=== PATIENT | female | born 1995 | race African-American/Black ===

== ENCOUNTER 2017-12-07 18:36 | Emergency (ER) | payer OTHER | END 2017-12-07 19:29 | disposition home or self-care (01) | LOC: M ED 18:36 | DX: S60.051A Contusion of right little finger without damage to nail, initial encounter (principal); X58.XXXA Exposure to other specified factors, initial encounter; Y93.83 Activity, rough housing and horseplay; Y92.009 Unspecified place in unspecified non-institutional (private) residence as the place of occurrence of the external cause; Z79.3 Long term (current) use of hormonal contraceptives | CPT/HCPCS: 73140 ==

== ENCOUNTER 2018-08-28 08:24 | Emergency (ER) | payer OTHER ==
[~2018-08-28] VITALS: Ht 157.5 cm; Wt 67.7 kg
[~2018-08-28 08:24] MED LIST: NEXP1IMP SC
[2018-08-28 09:16] LABS: HEMATOCRIT 34.7 % (36.0-47.0); HEMOGLOBIN 11.3 g/dl (12.0-15.5); MEAN CORPUSCULAR HEMOGLOBIN 26.8 pg (27.0-33.0); MEAN CORPUSCULAR HGB CONC 32.6 g/dl (32.0-36.5); MEAN CORPUSCULAR VOLUME 82.2 fl (80.0-96.0); PLATELET COUNT, AUTOMATED 252 10^3/uL (150-450); RED BLOOD COUNT 4.22 10^6/uL (4.00-5.40); WHITE BLOOD COUNT 8.2 10^3/uL (4.0-10.0)
--- NOTE | 2018-08-28 10:30 | REP ---
PELVIC ULTRASOUND: Real-time sonographic evaluation of the pelvis performed utilizing transabdominal and endovaginal technique. Uterus measures 10.9 x 5.4 x 7.8 cm. Within the endometrial canal there is an oval area of complex fluid measuring 2.7 x 1.1 x 2.1 cm. This may represent hemorrhage in a blighted ovum or it could simply represent an area of hemorrhage within the endometrial canal. No normal appearing gestational sac, yolk sac, or pole is seen. Ovaries appear normal in size and echotexture, right ovary measuring 2.7 x 1.5 x 2.2 cm and left ovary 3.5 x 1.5 x 2.7 cm. There is no evidence of ovarian torsion, RI right ovary 0.41 and left ovary 0.47. I see no adnexal mass or free fluid. Recommend correlation with serial quantitive beta hCG values to rule out the possibility of ectopic . Electronically Signed by Ahmet Hassan MD 08/31/2018 07:02 P
[2018-08-28 11:14] VITALS: BP 118/55
== END 2018-08-28 11:26 | disposition home or self-care (01) ==
LOC: M ED 08:24
DX: O03.4 Incomplete spontaneous abortion without complication (principal)

== ENCOUNTER 2018-10-14 11:43 | Emergency (ER) | payer OTHER ==
[~2018-10-14] VITALS: Ht 157.5 cm; Wt 67.7 kg
[2018-10-14 12:53] LABS: BASO % 0.7 % (0.0-1.0); EOS # 0.2 10^3/uL (0.0-0.5); EOS % 3.3 % (0.0-3.0); HEMATOCRIT 39.7 % (36.0-47.0); HEMOGLOBIN 12.7 g/dl (12.0-15.5); LYMPH # 2.3 10^3/uL (1.5-5.0); MEAN CORPUSCULAR HEMOGLOBIN 27.5 pg (27.0-33.0); MEAN CORPUSCULAR VOLUME 85.9 fl (80.0-96.0); MONO # 0.4 10^3/uL (0.0-0.8); NEUTROPHILS # 3.1 10^3/uL (1.5-8.5); NEUTROPHILS % 50.7 % (36.0-66.0); PLATELET COUNT, AUTOMATED 304 10^3/uL (150-450); RED BLOOD COUNT 4.62 10^6/uL (4.00-5.40); WHITE BLOOD COUNT 6.1 10^3/uL (4.0-10.0)
[2018-10-14 13:09] LABS: BLOOD UREA NITROGEN 15 MG/DL (7-18); CALCIUM LEVEL 9.3 MG/DL (8.5-10.1); CARBON DIOXIDE LEVEL 31 MEQ/L (21-32); CHLORIDE LEVEL 105 MEQ/L (98-107); CREATININE FOR GFR 0.81 MG/DL (0.55-1.30); GLOMERULAR FILTRATION RATE > 60.0 (>60); GLUCOSE, FASTING 94 MG/DL (70-100); POTASSIUM SERUM 4.2 MEQ/L (3.5-5.1); SODIUM LEVEL 139 MEQ/L (136-145)
[2018-10-14 13:50] LABS: HCG, SERUM QUANTITATIVE 2 MIU/ML
--- NOTE | 2018-10-14 16:17 | REP ---
Clinical: Vaginal bleeding. Technique: Transabdominal pelvic ultrasound followed by transvaginal examination for better evaluation of the endometrium and adnexa with color Doppler evaluation of the ovaries. Findings: Bladder is normal and measures approximately 8.1 x 5.5 x 5.8 cm. Normal anteverted uterus measures 7.6 x 3.4 x 4.2 cm. Endometrial complex measures 7.1 mm thickness. No obvious uterine or endometrial abnormalities appreciated. The bilateral ovaries are normal in appearance and vascularity. Right ovary measures 3.2 x 1.7 x 3.9 cm (RI 0.61) left ovary measures 3.5 x 1.6 x 1.8 cm (RI 0.54). Trace pelvic free fluid. No adnexal mass lesion. Impression: Normal pelvic ultrasound. Electronically Signed by Humble Lynch MD 10/14/2018 04:08 P
[2018-10-14 16:33] VITALS: BP 120/80
[2018-10-14 17:20] LABS: CHLAMYDIA DNA AMPLIFICATION NEGATIVE (NEGATIVE); GC DNA AMPLIFICATION NEGATIVE (NEGATIVE)
== END 2018-10-14 16:45 | disposition home or self-care (01) ==
LOC: M ED 11:43
DX: N93.9 Abnormal uterine and vaginal bleeding, unspecified (principal); Z87.59 Personal history of other complications of pregnancy, childbirth and the puerperium

== ENCOUNTER 2019-08-10 09:33 | Emergency (ER) | payer OTHER ==
[~2019-08-10] VITALS: Ht 157.5 cm; Wt 77.6 kg
[2019-08-10] MEDS ORDERED: NS 1,000 ML IV ONE (10:15)
[2019-08-10 10:32] LABS: BASO % 0.4 % (0.0-1.0); EOS # 0.1 10^3/uL (0.0-0.5); EOS % 1.2 % (0.0-3.0); HEMATOCRIT 39.2 % (36.0-47.0); HEMOGLOBIN 12.4 g/dl (12.0-15.5); LYMPH # 2.3 10^3/uL (1.5-5.0); MEAN CORPUSCULAR HEMOGLOBIN 26.2 pg (27.0-33.0); MEAN CORPUSCULAR HGB CONC 31.6 g/dl (32.0-36.5); MEAN CORPUSCULAR VOLUME 82.7 fl (80.0-96.0); MONO # 0.9 10^3/uL (0.0-0.8); MONO % 8.4 % (0.0-5.0); NEUTROPHILS # 6.7 10^3/uL (1.5-8.5); NEUTROPHILS % 66.2 % (36.0-66.0); PLATELET COUNT, AUTOMATED 326 10^3/uL (150-450); RED BLOOD COUNT 4.74 10^6/uL (4.00-5.40); WHITE BLOOD COUNT 10.2 10^3/uL (4.0-10.0)
[2019-08-10 11:37] LABS: ALBUMIN 3.6 GM/DL (3.2-5.2); ALT/SGPT 25 U/L (12-78); BILIRUBIN,DIRECT < 0.1 MG/DL (0.0-0.2); BILIRUBIN,TOTAL 0.2 MG/DL (0.2-1.0); BLOOD UREA NITROGEN 10 MG/DL (7-18); CALCIUM LEVEL 9.7 MG/DL (8.5-10.1); CARBON DIOXIDE LEVEL 28 MEQ/L (21-32); CHLORIDE LEVEL 103 MEQ/L (98-107); CREATININE FOR GFR 0.74 MG/DL (0.55-1.30); GLOMERULAR FILTRATION RATE > 60.0 (>60); GLUCOSE, FASTING 69 MG/DL (70-100); HCG, SERUM QUANTITATIVE 123431 MIU/ML; LIPASE 125 U/L (73-393); POTASSIUM SERUM 4.2 MEQ/L (3.5-5.1); SODIUM LEVEL 138 MEQ/L (136-145); TOTAL PROTEIN 7.8 GM/DL (6.4-8.2)
--- NOTE | 2019-08-10 12:52 | REP ---
Clinical: Nausea and cramping. Dating and viability. Technique: Transabdominal first trimester obstetrical ultrasound with color Doppler evaluation. Findings: Ultrasound examination demonstrates single live early intrauterine . Gestational sac with yolk sac and pole identified. CRL of 37 mm corresponds to 10 weeks 4 days gestational age with estimated date of delivery 03/03/2020. heart rate equals 174 beats per minute. No gross abnormalities are identified. Impression: Single live early intrauterine at 10 weeks 4 days gestational age. Complete anatomical assessment should be performed at 19th 20 weeks. Electronically Signed by Humble Lynch MD 08/10/2019 12:43 P
[2019-08-10 13:26] LABS: CHLAMYDIA DNA AMPLIFICATION POSITIVE (NEGATIVE); GC DNA AMPLIFICATION NEGATIVE (NEGATIVE)
[2019-08-10] MEDS ORDERED: AZITHROMYCIN 250MG TABLET PO ONE (13:45)
[2019-08-10 14:00] VITALS: BP 125/66
== END 2019-08-10 14:16 | disposition home or self-care (01) ==
LOC: M ED 09:33
DX: Z32.01 Encounter for pregnancy test, result positive (principal); R11.10 Vomiting, unspecified; A74.9 Chlamydial infection, unspecified; Z3A.10 10 weeks gestation of pregnancy

== ENCOUNTER 2019-10-29 15:51 | Emergency (ER) | payer OTHER ==
[~2019-10-29] VITALS: Ht 157.5 cm; Wt 82.6 kg
[2019-10-29] MEDS ORDERED: METR-265 (15:58)
[2019-10-29 17:52] LABS: VENOUS BASE EXCESS 0.5 (-2.0-2.0); VENOUS HCO3 26.8 MEQ/L (23.0-27.0); VENOUS O2 SATURATION 75.4 % (60.0-80.0); VENOUS PARTIAL PRESSURE CO2 50.1 mmHg (38.0-50.0); VENOUS PARTIAL PRESSURE O2 42.5 mmHg (30.0-50.0); VENOUS PH 7.346 UNITS (7.330-7.430); VENOUS STANDARD HCO3 24.4 MEQ/L; VENOUS TOTAL CO2 28.3 MEQ/L (24.0-28.0)
[2019-10-29 17:57] LABS: BASO # 0.1 10^3/uL (0.0-0.2); BASO % 0.5 % (0.0-1.0); EOS # 0.1 10^3/uL (0.0-0.5); HEMOGLOBIN 10.7 g/dl (12.0-15.5); LYMPH # 2.2 10^3/uL (1.5-5.0); MEAN CORPUSCULAR HEMOGLOBIN 26.4 pg (27.0-33.0); MEAN CORPUSCULAR HGB CONC 31.5 g/dl (32.0-36.5); MEAN CORPUSCULAR VOLUME 83.7 fl (80.0-96.0); MONO % 8.8 % (0.0-5.0); NEUTROPHILS # 7.1 10^3/uL (1.5-8.5); NEUTROPHILS % 64.7 % (36.0-66.0); PLATELET COUNT, AUTOMATED 276 10^3/uL (150-450); RED BLOOD COUNT 4.06 10^6/uL (4.00-5.40)
[2019-10-29 18:20] LABS: BLOOD UREA NITROGEN 11 MG/DL (7-18); CALCIUM LEVEL 8.9 MG/DL (8.5-10.1); CARBON DIOXIDE LEVEL 28 MEQ/L (21-32); CHLORIDE LEVEL 105 MEQ/L (98-107); CREATININE FOR GFR 0.57 MG/DL (0.55-1.30); GLOMERULAR FILTRATION RATE > 60.0 (>60); GLUCOSE, FASTING 85 MG/DL (70-100); POTASSIUM SERUM 3.8 MEQ/L (3.5-5.1); SODIUM LEVEL 137 MEQ/L (136-145)
[2019-10-29 18:41] VITALS: BP 137/63
== END 2019-10-29 18:47 | disposition home or self-care (01) ==
LOC: M ED 15:51
DX: O99.512 Diseases of the respiratory system complicating pregnancy, second trimester (principal); Z3A.21 21 weeks gestation of pregnancy

== ENCOUNTER 2020-01-02 17:00 | Outpatient (CLI) | payer OTHER ==
[~2020-01-02] VITALS: Ht 157.5 cm; Wt 91.2 kg
[~2020-01-02 17:00] MED LIST changes: +METR-265
[2020-01-02 17:18] VITALS: BP 127/64
[2020-01-02] MEDS ORDERED: PRENTAB9 PO (17:56)
[2020-01-02] MEDS ORDERED: BIOT1CAP2 PO (17:56)
[2020-01-02] MEDS ORDERED: TUMS500C PO (17:56)
[2020-01-02 19:11] VITALS: BP 117/64
[2020-01-02 19:48] VITALS: BP 113/74
--- NOTE | 2020-01-02 19:59 | IPNPDOC ---
Obstetrical Progress Note Date of Service Jan 02, 2020 Subjective 24 yo G1 at 30 5/7 weeks presents with constant pain and pressure in the vaginal area for 1 week. She has some pain with walking. no bleeding. Had previous care with [facility]. 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 Her last visit with [facility] was early November. Good movement. Objective Vital Signs Date Time Temp Pulse Resp B/P (MAP) Pulse Ox O2 Delivery O2 Flow Rate FiO2 01/02/20 17:18 98.5 104 18 127/64 (85) 98 Room Air Assessment Heart Rate (FHR): 130 Variability: Moderate Accelerations: Positive Decelerations: None Heart Rate Tracing: Category I Tocometer Contractions: No Sterile Vaginal Examination Dilation: None Cervical Consistency: Firm Cervical Position: Posterior Postion/Presentation: Cephalic presentation Assessment and Plan Additional Comments Bedside transabdominal ultrasound: vtx, EFW=3# 7oz. Normal NADER. movement observed. Anterior Placenta. A/P 24 yo G1 at 30 5/7 weeks gestation with pelvic pain, probable pubic joint dysfunction D/C home. Pt given info for Medicaid office locally pt given this providers phone number if she has trouble scheduling an appointment for care Questions answered [place] BLACKWELL MD Jan 02, 2020 19:59
== END 2020-01-02 20:20 | disposition home or self-care (01) ==
LOC: M LDO 17:00
PROVIDERS: ATTEND Specialist
DX: O26.893 Other specified pregnancy related conditions, third trimester (principal); R10.2 Pelvic and perineal pain; Z3A.30 30 weeks gestation of pregnancy
CPT/HCPCS: 59025; 76815; G0378; G0463

== ENCOUNTER 2020-02-27 10:01 | Outpatient (CLI) | payer MEDICAID ==
[~2020-02-27] VITALS: Ht 160 cm; Wt 97.5 kg
[~2020-02-27 10:01] MED LIST changes: +BIOT1CAP2 PO; +PRENTAB9 PO; +TUMS500C PO
[2020-02-27 10:15] VITALS: BP 131/70
--- NOTE | 2020-02-27 11:13 | IPNPDOC ---
Obstetrical Progress Note Date of Service Feb 27, 2020 Subjective 24yo at 38+ weeks (EDC: 03/07/20). Presents for "amniotic fluid check". Denies large gush of fluid, although she states she lost her mucous plug. No continuous flow of fluid. No vaginal bleeding. She contracts irregularly; denies ctx every 3-5min. Mild to moderate discomfort. +FM. course: early concern for oligohydramnios. Followed by [place] Stover CNM and she plans on home . GBS +. 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 Assessment Heart Rate (FHR): 130 Variability: Moderate Accelerations: Positive Decelerations: None Heart Rate Tracing: Category I Tocometer Contractions: Yes Frequency: irregular Sterile Vaginal Examination Dilation: 1cm Effacement (%): 90% Station: -1, 0 Cervical Consistency: Soft Cervical Position: Anterior Postion/Presentation: Cephalic presentation Assessment and Plan Additional Comments Ultrasound, chisholm: cephalic presentation. Max vertical pocket 6cm, multiple 2x2cm pockets. 24yo G1 at 38+5 weeks. No evidence of oligohydramnios, labor, or ROM. Reassuring maternal and status. -Routine third trimester precautions reviewed. HARLEY MÁRQUEZ DO Feb 27, 2020 11:13
== END 2020-02-27 12:15 | disposition home or self-care (01) ==
LOC: M LDO 10:01
PROVIDERS: ATTEND Obstetrics & Gynecology
DX: O41.8X30 Other specified disorders of amniotic fluid and membranes, third trimester, not applicable or unspecified (principal); Z3A.38 38 weeks gestation of pregnancy

== ENCOUNTER 2020-06-28 17:09 | Emergency (ER) | payer MEDICAID ==
[~2020-06-28] VITALS: Ht 157.5 cm; Wt 95.1 kg
[2020-06-28 19:24] LABS: BASO % 0.4 % (0.0-1.0); EOS # 0.1 10^3/uL (0.0-0.5); EOS % 1.7 % (0.0-3.0); HEMOGLOBIN 13.2 g/dl (12.0-15.5); LYMPH # 3.4 10^3/uL (1.5-5.0); LYMPH % 48.4 % (24.0-44.0); MEAN CORPUSCULAR HEMOGLOBIN 25.3 pg (27.0-33.0); MEAN CORPUSCULAR HGB CONC 30.7 g/dl (32.0-36.5); MEAN CORPUSCULAR VOLUME 82.4 fl (80.0-96.0); MONO # 0.6 10^3/uL (0.0-0.8); NEUTROPHILS # 2.8 10^3/uL (1.5-8.5); NEUTROPHILS % 40.2 % (36.0-66.0); PLATELET COUNT, AUTOMATED 372 10^3/uL (150-450); RED BLOOD COUNT 5.22 10^6/uL (4.00-5.40)
[2020-06-28] MEDS ORDERED: ONDANSETRON 4 MG ORAL DISINTEGRATING TAB PO ONE (19:45)
[2020-06-28 19:52] LABS: ALT/SGPT 29 U/L (12-78); BILIRUBIN,DIRECT < 0.1 MG/DL (0.0-0.2); BILIRUBIN,TOTAL 0.2 MG/DL (0.2-1.0); LIPASE 55 U/L (73-393); TOTAL PROTEIN 8.5 GM/DL (6.4-8.2)
[2020-06-28 20:24] LABS: FREE THYROXINE INDEX 1.4 % (1.3-4.8); T UPTAKE 29 % (30-39); THYROID STIMULATING HORMONE 0.751 uIU/ML (0.358-3.740); THYROXINE (T4) 4.9 UG/DL (4.5-12.0)
[2020-06-28 22:30] VITALS: BP 127/71
[2020-06-28 23:24] LABS: CHLAMYDIA DNA AMPLIFICATION NEGATIVE (NEGATIVE); GC DNA AMPLIFICATION NEGATIVE (NEGATIVE)
--- NOTE | 2020-06-29 17:59 | REP ---
INDICATION: hurt foot 1 mo ago, no eval, still hurts COMPARISON: None. TECHNIQUE: Four views right foot. FINDINGS: There is no evidence of acute fracture, dislocation, or intrinsic bone disease. IMPRESSION: No fracture or dislocation. <Electronically signed by Ahmet Hassan > 06/29/20 [id number]
== END 2020-06-28 22:40 | disposition home or self-care (01) ==
LOC: M ED 17:09
DX: N89.8 Other specified noninflammatory disorders of vagina (principal); R11.0 Nausea; M79.671 Pain in right foot

== ENCOUNTER 2020-08-06 14:51 | Emergency (ER) | payer OTHER ==
[~2020-08-06] VITALS: Ht 157.5 cm; Wt 92.1 kg
[2020-08-06] MEDS ORDERED: MAGIC MOUTHWASH SUSPENSION BTL SS STA (17:47)
[2020-08-06] MEDS ORDERED: BENZONATATE 100 MG CAP PO ONE (17:50)
--- NOTE | 2020-08-06 18:21 | REP ---
INDICATION: cough, SOB with lying down COMPARISON: None. TECHNIQUE: PA and lateral. FINDINGS: The mediastinum and cardiac silhouette are normal. The lung mathews are clear and without acute consolidation, effusion, or pneumothorax. The skeletal structures are intact and normal. IMPRESSION: No acute cardiopulmonary process. <Electronically signed by Humble Lynch > 08/06/20 [id number]
[2020-08-06] MEDS ORDERED: PSEU120T19 PO (19:06)
[2020-08-06] MEDS ORDERED: MAGICMW SSP (19:06)
[2020-08-06] MEDS ORDERED: FLON1SPR NARES (19:06)
[2020-08-06 20:24] VITALS: BP 132/62
== END 2020-08-06 20:42 | disposition home or self-care (01) ==
LOC: M ED 14:51
DX: J02.9 Acute pharyngitis, unspecified (principal); R09.81 Nasal congestion; R05 Cough

== ENCOUNTER 2020-12-09 00:16 | Emergency (ER) | payer OTHER ==
[~2020-12-09] VITALS: Ht 157.5 cm; Wt 87.7 kg
[~2020-12-09 00:16] MED LIST changes: +FLON1SPR NARES; +MAGICMW SSP; +PSEU120T19 PO
[2020-12-09 00:19] VITALS: BP 119/74
== END 2020-12-09 01:50 | disposition left against medical advice (07) ==
LOC: M ED 00:16
DX: Z53.21 Procedure and treatment not carried out due to patient leaving prior to being seen by health care provider (principal)

== ENCOUNTER 2020-12-15 11:44 | Emergency (ER) | payer OTHER ==
[~2020-12-15] VITALS: Ht 157.5 cm; Wt 85.9 kg
[2020-12-15 11:45] VITALS: BP 111/57
--- OUTSIDE RECORDS SUMMARY | 2020-12-15 11:53 | CCD ---
Author Author Gem Davis Wilson Organization Unknown Address [address] [address] Phone Care Team Providers Care Credit And Collections Representative Name Role Phone Tianna Davis PCP Chief Complaint and Reason for Visit Chief Complaint Allergies, Adverse Reactions, Alerts No Data in Section Problem List Concept Problem Description Status Start Date Created Date Resolv ed Date Snomed Code F43.20 Adjustment Disorder, Unspecified Active 021 Medications No Data in Section Social History Social History Element Description Concept Effective Date Smoking Status Unknown if ever smoked [id number] Immunizations No Data in Section Vital Signs No Data in Section Procedures Date Concept Id Description Targeted Site Concept Targeted Site Concept Type 11/02/2020 63136 Brief Individual Psychotherapy - 30 min CPT Patient has no history of implantable de vices Encounters Encounter Start Date End Date Encounter Type Description Diagnosis Di agnosis Desc Location Author First Name Author Last Name Npid Taxonomy Cod e Taxonomy Desc Phone Number Location Addr1 Location Addr2 Location [facility] Location [facility] Location [facility] [id number] 11/02/2020 11/02/2020 [id number] Brief Individual Psychoth erapy - 30 min F43.20 Adjustment disorder, unspecified [facility] Tianna [id number] [facility] [id number] [address] [id number] Plan of Treatment No Data in Section Lab Results No Data in Section Instructions No Data in Section Insurance Providers Insurance Id Policy Effective Date Policy Thru Date Company N [employer] [id number] 2020 [employer] Managed Janice hannah
--- OUTSIDE RECORDS SUMMARY | 2020-12-15 11:53 | CCD ---
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 appointment. Reason for referral: evaluation and treatment. Summary of care provided to patient.(Electronically signed by EDMUNDO Rucker 09/02/2020 22:34) 4Clinical Report - Physicians/Mid Levels [facility] [address] [place] [address] Phone #: ext- [phone] 09/02/2020 10:55 Patient: ONEAL THORNTON Sex: F : 1995 Age: 25y Name Value Range Interpretation Code Description Data Judy rce(s) Supporting Document(s) ID Date Data Source [id number] 09/02/2020 10:58:00 AM EDT [facility] Addenda for ONEAL THORNTON VisitID: [id number] Date: 19:07Lab results reviewed, DNA probe showedPositive Gardnerella vaginalis. Given RxFlagyl, Fluconazole.(Electronically signed by Danisha Herrera RN - 09/06/2020 19:07) Name Value Range Interpretation Code Description Data Judy rce(s) Supporting Document(s) ID Date Data Source [id number] 09/05/2020 04:27:00 [place] [address] PHONE: [phone] FAX: [phone] Name .................. : NORBERTO Adler Acct Number.................. : [id number] ROOM. ................. : MR Number ................... : [id number] Stay type ............. : E/R Discharge Date......... ... : 09/02/20 Admit Date ......... : 09/02/20 Admit Phys .................... : CHANLIECCO Date of ....... : 1995 Family Phys ................... : UNKNOWN HECTOR Phone .................. : [phone] Age ................................ : 25 Film# .................. .:[id number] Sex ................................. : F Unsigned transcriptions are preliminary reports and do not represent a medical or legal document FOOT COMPLETE-[address] [place] [id number] COMPLETE:09/02/20 14:48 D [id number] Reason(s): Pain RIGHT FOOT X-RAY: CLINICAL HISTORY: Pain, trauma/injury. FINDINGS: Small os naviculare identified with no other significant findings with no evidence for any fractures. IMPRESSION: Small os naviculare with no other significant findings noted. Electronically Reviewed and Signed By JEFFREY WEBBER MD , 09/05/20 16:27, [facility] Transcribe Initials: DOLLY , Transcribe Date: 09/02/20 16:31, Dictation Date: Copy for: RHONDA OROZCO via fax Copy for: EMERGENCY DEPT via modem Copy for: 710 MED REC DISCHARGED Page 1 of 1 Name Value Range Interpretation Code Description Data Judy rce(s) Supporting Document(s) ID Date Data Source [id number] 09/08/2020 06:50:00 AM EDT [facility] Value Range Interpretation Code Description Data Judy rce(s) Supporting Document(s) CULTURE GENITAL [facility] _GENITAL CULTURE_$$[id number]$$[id number]$$ 433610$$106376$$[id number]$$[id number] DATE/TIME: 09/07/2020 11:06Culture: CULTURE GENITAL Status: FinalGenital Culture, Routine: [id number] genital christina.Heavy growth Previous result entered on 09/06/2020 14:56 ET Routine genital christina.Isolate 1 Yeast Flag: A . . . . . . .6isolatedScant growthRequest for further identification must be madewithin 1 week. 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 _CULTURE URINE_$$722275$$807151$$628948$$906300$$812784$$091434$$615081$$649136$$067473$$ 432812$$493107$$152858$$790504$$240987$$019830$$901992$$731672$$779171$$596302$$ 934735$$774671$$347367$$965925$$404645$$334076$$686925$$523833 -- Continued on next page --Patient: NORBERTO Adler Order: [id number] Page 2Culture: CULTURE URINE Status: Final ==== -- Continued on next page --Patient: NORBERTO Adler Order: [id number] Page 2Culture: CULTURE URINE Status: Prelim =====$$[id number]$$[id number] DATE/TIME: 09/06/2020 13:06Culture: CULTURE URINE Status: FinalIsolate 1 Enterococcus faecalis Flag: A . . . . . . .75,000 Colonies/mL Previous result entered on 09/05/2020 07:05 ET Microbiological testing to rule out the presence of possible pathogensis in progress.Urine Culture,Comprehensive: L7Cfyckbfhyxjo faecalis Flag: APatient: NORBERTO Adler Order: [id number] Page 3Culture: CULTURE URINE Status: Final ISOLATE 1 Enterococcus faecalis Isolate 1Antibiotic AMOS IntUnits ug/mL Ciprofloxacin S S . . . . . .185-9Levofloxacin S S . . . . . .93635-2Zaoazpxyhltwxe S S . . . . . .363-2Penicillin S S . . . . . .6932-8Tetracycline R R . . . . . .496-0Vancomycin S S . . . . . 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 : 09/06/20.0716.XMT.SENT REF 09/06/20.1440.XMT.SENT REF ID Date Data Source [id number] 09/06/2020 02:39:00 PM EDT [facility] Name Value Range Interpretation Code Description Data Judy rce(s) Supporting Document(s) Chlamydia trachomatis rRNA [Presence] in Unspecified specimen by Probe and target amplification method Negative Negative [facility] Neisseria gonorrhoeae rRNA [Presence] in Unspecified specimen by Probe and target amplification method Negative Negative [facility] ID Date Data Source [id number] 09/05/2020 06:52:00 AM EDT [facility] Value Range Interpretation Code Description Data Judy rce(s) Supporting Document(s) Asha sp rRNA [Presence] in Vaginal fluid by DNA probe Negative N egative [facility] Gardnerella vaginalis rRNA [Presence] in Genital specimen by DNA probe Positive Negative A [facility] Trichomonas vaginalis rRNA [Presence] in Genital specimen by DNA probe Negative Negative [facility] ID Date Data Source [id number] 09/02/2020 01:12:00 PM EDT [facility] Name Value Range Interpretation Code Description Data Judy rce(s) Supporting Document(s) [facility] COLOR stephanie NORMAL: Yellow [facility] CLARITY hazy NORMAL: Clear [facility] Specific gravity of Urine by Test strip 1.025 1.001 - 1.030 [facility] pH 6 5 - 9 [facility] Glucose [Mass/volume] in Urine by Test strip NORM NORMAL: Negat [facility] Bilirubin.total [Presence] in Urine by Test strip NEG NORMAL: Negative [facility] Ketones [Presence] in Urine by Test strip NEG NORMAL: Negative [facility] Protein [Mass/volume] in Urine by Test strip 30 NORMAL: Negat [facility] Nitrite [Presence] in Urine by Test strip NEG NORMAL: Negative [facility] BLOOD NEG NORMAL: Negative [facility] LEUK EST 25 NORMAL: Negative [facility] Urobilinogen [Mass/volume] in Urine by Test strip 1 less candace n 1.0 mg/dL [facility] MICROSCOPIC See Below [facility] ital WBC 1 - 3 NORMAL: NONE SEEN [facility] Erythrocytes [#/volume] in Urine by Test strip None Seen NORMAL: NON E SEEN [facility] EPITHELIAL MODERATE NORMAL: NONE SEEN A [facility] Bacteria [Presence] in Urine sediment by Light microscopy No ne Seen NORMAL: NONE SEEN [facility] Mucus [Presence] in Urine sediment by Light microscopy 3+ NOR MAL: NONE SEEN A [facility] Amorphous sediment [Presence] in Urine sediment by Light amos roscopy RARE NORMAL: NONE SEEN [facility] ID Date Data Source [id number] 09/02/2020 12:24:00 PM EDT [facility] Name Value Range Interpretation Code Description Data [facility] rce(s) Supporting Document(s) Choriogonadotropin.intact [Units/volume] in Serum or Plasma <0.5 mIU/ mL [facility] Interpr etation: Less than 5 mU/mL: Negative 6-10 mU/mL: Borderline (suggest repeat in 48 hours) >10: Positive Approx HCG range (mU/mL) Weeks post LMP 5.4-708 mU/mL 3-4 Weeks 217-06117 mU/mL 5-6 Weeks 4059-513837 mU/mL 7-8 Weeks 97396-227077 mU/mL 9-10 Weeks 49726-65848 mU/mL 12-14 Weeks 17397-36696 mU/mL 15-16 Weeks 8240- 49828 mU/mL 17-18 Weeks Procedure Social History Code Duration Value Status Description Data Source(s ) Smoking 12/08/2020 12:00:00 AM EDT Unknown if ever smoked comp leted Unknown if ever smoked [facility] Smoking 11/02/2020 12:00:00 AM EDT Unknown if ever smoked comp leted Unknown if ever smoked [facility] Smoking 09/05/2020 12:00:00 AM EDT Unknown if ever smoked comp leted Unknown if ever smoked [facility] Smoking 08/29/2020 12:00:00 AM EDT Unknown if ever smoked comp leted Unknown if ever smoked [facility])
--- OUTSIDE RECORDS SUMMARY | 2020-12-15 11:53 | CCD ---
Author Author Gem Davis Barre Organization Unknown Address [address] [address] Phone Care Team Providers Care Strategic Manager Name Role Phone Tianna Davis PCP Allergies, Adverse Reactions, Alerts No Data in Section Problem List Concept Problem Description Status Start Date Created Date Resolv ed Date Snomed Code F43.20 Adjustment Disorder, Unspecified Active 021 Medications No Data in Section Social History Social History Element Description Concept Effective Date Smoking Status Unknown if ever smoked [id number] Immunizations No Data in Section Vital Signs No Data in Section Procedures Date Concept Id Description Targeted Site Concept Targeted Site Concept Type 12/07/2020 14723 Brief Individual Psychotherapy - 30 min CPT Patient has no history of implantable de vices Encounters Encounter Start Date End Date Encounter Type Description Diagnosis Di agnosis Desc Location Author First Name Author Last Name Npid Taxonomy Cod e Taxonomy Desc Phone Number Location Addr1 Location Addr2 Location [facility] Location [facility] Location [facility] [id number] 12/07/2020 12/07/2020 47050 Brief Individual Psychoth erapy - 30 min F43.20 Adjustment disorder, unspecified [facility] 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
[2020-12-15 13:17] LABS: BASO # 0.1 10^3/uL (0.0-0.2); BASO % 0.6 % (0.0-1.0); EOS # 0.1 10^3/uL (0.0-0.5); EOS % 0.8 % (0.0-3.0); HEMATOCRIT 41.1 % (36.0-47.0); HEMOGLOBIN 12.7 g/dl (12.0-15.5); LYMPH % 24.9 % (24.0-44.0); MEAN CORPUSCULAR HEMOGLOBIN 25.5 pg (27.0-33.0); MEAN CORPUSCULAR HGB CONC 30.9 g/dl (32.0-36.5); MEAN CORPUSCULAR VOLUME 82.4 fl (80.0-96.0); MONO # 0.5 10^3/uL (0.0-0.8); MONO % 6.6 % (2.0-8.0); NEUTROPHILS # 5.2 10^3/uL (1.5-8.5); NEUTROPHILS % 66.6 % (36.0-66.0); PLATELET COUNT, AUTOMATED 359 10^3/uL (150-450); RED BLOOD COUNT 4.99 10^6/uL (4.00-5.40); WHITE BLOOD COUNT 7.8 10^3/uL (4.0-10.0)
== END 2020-12-15 17:43 | disposition left against medical advice (07) ==
LOC: M ED 11:44
DX: Z53.21 Procedure and treatment not carried out due to patient leaving prior to being seen by health care provider (principal)